=== PATIENT | male | born 1950 | race Caucasian/White ===

== ENCOUNTER → 2019-08-04 | Outpatient (CLI) | payer MEDICARE, BC ==
[~2019-08-04] MED LIST: CRESTOR20 MG PO
== END ==
LOC: COL.RAD 09:16
DX: Z13.6 Encounter for screening for cardiovascular disorders (principal); I70.0 Atherosclerosis of aorta; F17.201 Nicotine dependence, unspecified, in remission

== ENCOUNTER 2021-07-15 09:57 | Inpatient (IN) | payer MEDICARE, BC ==
[~2021-07-15] VITALS: Ht 188 cm; Wt 86.9 kg
[2021-07-15] MEDS ORDERED: LIPITOR 40MG TA40 MG PO (10:17)
[2021-07-15 10:52] LABS: BASO # 0.1 (0.0-0.2); BASO % 0.9 % (0.0-2.0); EOS # 0.4 (0.0-0.7); EOS % 4.7 % (0-4.0); GRAN # 4.8 (1.4-6.5); GRAN % 62.1 % (42.2-75.2); HEMATOCRIT 42.7 % (42.0-52.0); HEMOGLOBIN 14.6 g/dl (13.5-18.0); LYMPH # 1.9 (1.2-3.4); LYMPH % 24.7 % (20.0-51.0); MEAN CELL VOLUME 96 fl (80.0-100.0); MEAN CORPUSCULAR HEMOGLOBIN 33 pg (27.0-31.0); MEAN CORPUSCULAR HGB CONC 34 g/dl (33.0-37.0); MEAN PLATELET VOLUME 9.7 fl (7.4-10.4); MONO # 0.6 (0.1-0.6); PLATELET COUNT 231 K/mm3 (130-400); RED BLOOD COUNT 4.45 M/mm3 (4.20-5.60); REDCELL DISTRIBUTION WIDTH-CV 13.4 % (11.5-14.5)
[2021-07-15 11:05] LABS: BILIRUBIN,TOTAL 0.5 mg/dL (0.2-1.2); CALCIUM 9.7 mg/dL (8.4-10.2); TOTAL PROTEIN 7.3 gm/dL (6.2-8.1)
[2021-07-15] MEDS ORDERED: OMEGA-3 1000 MG1 CAP PO (14:57)
[2021-07-15] MEDS ORDERED: MEN'S ONE DAIL1 EACH PO (14:58)
[2021-07-15] MEDS ORDERED: VITAMIN C500 MG PO (14:58)
[2021-07-15 15:51] VITALS: BP 135/79; PULSE 82
[2021-07-15 18:32] LABS: COLLECTION METHOD IN
[2021-07-15 18:39] LABS: PH 6 (5-8); SQUAMOUS EPITHELIAL None Seen /hpf; URINE APPEARANCE Clear; URINE BACTERIA None Seen /hpf; URINE BILIRUBIN Negative (NEGATIVE); URINE BLOOD Negative (NEGATIVE); URINE COLOR Yellow; URINE GLUCOSE Negative (NEGATIVE); URINE KETONE Negative (NEGATIVE); URINE LEUKOCYTE ESTERASE Negative (NEGATIVE); URINE NITRATE Negative (NEGATIVE); URINE PROTEIN(semi-quant) Negative (NEGATIVE); URINE UROBILINOGEN Negative (NEGATIVE)
--- NOTE | 2021-07-15 18:51 | NUR ---
Patient extremely confused and not following directions. Bush was placed d/t patient retaining > 800mL of urine. Patient agitated. Kacey CALLAHAN notified and ordered seroquel.
[2021-07-15 20:00] VITALS: BP 144/83; PULSE 104; TEMP 98.3
--- NOTE | 2021-07-15 22:14 | NUR ---
PT ACTIVELY TRYING TO GET OUT OF BED. ATTEMPTED TO REORIENT PT BUT THAT WAS UNSUCCESSFUL. STATES HE NEEDS TO PEE, REMINDED PT THAT HE HAS A CATHETER BUT PT IS NOT RECEPTIVE. MITS PLACED ON PT TO PREVENT PULLING AT CATHETER. PRN MEDICATION GIVEN TO CALM PT DOWN. WILL CONTINUE TO MONITOR.
[2021-07-16 03:46] VITALS: BP 143/69; PULSE 91; TEMP 98.3
--- NOTE | 2021-07-16 05:33 | NUR ---
PT STILL VERY CONFUSED. ABLE TO ANSWER WHAT HIS NAME IS BUT REPEATS HIS NAME BACK WHEN ASKED ANY OTHER QUESTIONS. TYPICALLY PT TURNS OVER IN BED AND IGNORES WHEN ASKED ANY QUESTIONS. UNABLE TO PERFORM VERBAL COMMANDS. DID NOT APPEAR TO SLEEP AT ALL THROUGHOUT THE NIGHT. CONTINUING TO MONITOR.
--- NOTE | 2021-07-16 07:30 | NUR ---
Patient laying in bed upon entering room. This RN raised the HOB to 90 degrees to do the dyspagia screening. Patient was unable to follow directions and take a sip of water. Patient has purposeful movement, but is unable to follow directions when asked to squeeze fingers. Patient is not answering many questions, only stating his name "Geoff" and "yes". PN student will be assisting with the patient today.
[2021-07-16 07:42] VITALS: BP 143/70; PULSE 84; TEMP 98.4
[2021-07-16 10:00] LABS: BASO # 0.1 (0.0-0.2); BASO % 0.5 % (0.0-2.0); EOS # 0.1 (0.0-0.7); EOS % 1.1 % (0-4.0); GRAN # 7.1 (1.4-6.5); GRAN % 71.8 % (42.2-75.2); HEMATOCRIT 41.2 % (42.0-52.0); HEMOGLOBIN 14.2 g/dl (13.5-18.0); LYMPH # 1.6 (1.2-3.4); LYMPH % 15.9 % (20.0-51.0); MEAN CELL VOLUME 94 fl (80.0-100.0); MEAN CORPUSCULAR HEMOGLOBIN 32 pg (27.0-31.0); MEAN CORPUSCULAR HGB CONC 35 g/dl (33.0-37.0); MEAN PLATELET VOLUME 9.1 fl (7.4-10.4); MONO % 10.2 % (1.7-9.3); PLATELET COUNT 226 K/mm3 (130-400); RED BLOOD COUNT 4.38 M/mm3 (4.20-5.60); REDCELL DISTRIBUTION WIDTH-CV 13.2 % (11.5-14.5)
[2021-07-16 10:21] LABS: CALCIUM 9.9 mg/dL (8.4-10.2); CREATININE, serum 0.92 mg/dL (0.72-1.25); POTASSIUM 4.1 mmol/L (3.5-4.5)
--- NOTE | 2021-07-16 10:29 | NUR ---
Initial visit attempt; Patient's took Education Manager's card for further reference since patient is busy with visits from nurses and others. Education Manager is available should patient decide he would like a visit.
[2021-07-16 10:55] VITALS: BP 133/73; PULSE 93; TEMP 98.1
--- NOTE | 2021-07-16 14:32 | NUR ---
cooler worker met with patient to discuss discharge plan. Patient's present at bedside. Due to patient's mental status, completes assessment. Patient lives at home with his Saranya [phone] in [place]. Prior to admission, states that the patient has been fully independent with all of his activities of daily living and does not utilize any medical equipment within the home. PCP is Dr. Ellis and uses [facility] for pharmacy needs with no cost difficulties. reports that the patient does have a DPOA-HC and that she is his agent. Copies is in patient's floor chart. PT/OT/ST requests made to Dr. Patel. Discharge plan: Pending PT/OT rec's
--- NOTE | 2021-07-16 16:18 | NUR ---
Patient back to floor from .
[2021-07-16 16:24] VITALS: BP 116/69; PULSE 90
[2021-07-16 17:46] LABS: CSF APPEARANCE CLEAR; CSF COLOR COLORLESS
[2021-07-16 17:47] LABS: CSF POLYMORPHONUCLEAR 22 % (0-6); CSF RBC 73 /mm3 (0-0)
[2021-07-16 17:49] LABS: CSF MONONUCLEAR 77 % (70-100)
--- NOTE | 2021-07-16 18:18 | NUR ---
Patient remains confused and unable to follow commands. Frequently tries to get out of bed, and when told to lay back down he states, "god dammit, leave me alone". Patient has been vocal, but is still only able to answer what his name is.
--- NOTE | 2021-07-16 19:30 | NUR ---
Shift report received from Nayeli. At this time, patient has set off bed alarm and has pulled out his aguila; no evidence of urethral trauma or bleeding is noted. Patient is confused but is steady on his feet. He is provided with new gown and is sat up in recliner with his dinner. Chair alarm set , will continue close monitoring.
[2021-07-16 19:36] LABS: GLUCOSE,CSF 74 mg/dL (40-70); TOTAL PROTEIN,CSF 78 mg/dL (15-45)
[2021-07-16 20:03] VITALS: BP 125/58; PULSE 86; TEMP 98.3
[2021-07-17 00:28] VITALS: BP 147/79; PULSE 90; TEMP 98.2
[2021-07-17 04:45] VITALS: BP 141/79; PULSE 90; TEMP 98.2
[2021-07-17 07:13] LABS: BASO # 0.1 K/mm3 (0.0-0.2); BASO % 0.7 % (0.0-2.0); EOS # 0.2 K/mm3 (0.0-0.7); GRAN # 8.1 K/mm3 (1.4-6.5); GRAN % 72.6 % (42.2-75.2); HEMATOCRIT 40.4 % (42.0-52.0); HEMOGLOBIN 13.9 g/dl (13.5-18.0); LYMPH # 1.5 K/mm3 (1.2-3.4); LYMPH % 13.6 % (20.0-51.0); MEAN CELL VOLUME 96 fl (80.0-100.0); MEAN CORPUSCULAR HEMOGLOBIN 33 pg (27.0-31.0); MEAN CORPUSCULAR HGB CONC 34 g/dl (33.0-37.0); MONO # 1.2 K/mm3 (0.1-0.6); MONO % 10.7 % (1.7-9.3); PLATELET COUNT 228 K/mm3 (130-400); RED BLOOD COUNT 4.21 M/mm3 (4.20-5.60); REDCELL DISTRIBUTION WIDTH-CV 13.2 % (11.5-14.5)
[2021-07-17 07:15] VITALS: BP 150/75; PULSE 85; TEMP 99
[2021-07-17 07:26] LABS: CALCIUM 9.1 mg/dL (8.4-10.2); CREATININE, serum 1.1 mg/dL (0.72-1.25); POTASSIUM 3.9 mmol/L (3.5-4.5)
[2021-07-17 11:36] VITALS: BP 148/75; PULSE 89; TEMP 98
[2021-07-17 16:18] VITALS: BP 142/86; PULSE 101; TEMP 98.5
--- NOTE | 2021-07-17 17:56 | NUR ---
THE PATIENT HAS HAD AN UNEVENTFUL DAY. PT IS NOT TRACKING WELL, WHEN ASKED TO TRACK THIS RN'S FINGER HE IS UNABLE TO LOOK SIDE TO SIDE, AND APPEARS TO HAVE NYSTAGMUS. DURING THE DAY, THE PATIENT HAS BEEN VERY ACTIVE MOVING FROM BED TO CHAIR. WENT FOR A WALK TO THE MEDICAL UNIT DOORS WHERE THE PATIENT INDICATED HE WAS DONE WALKING. ACCORDING TO THE NEUROLOGY NOTE THAT WAS FROM , AN UPDATE WAS DICTATED JUL 17 AND IT STATES THE PATIENT SHOULD TRANSFER TO TERTIARY CARE DUE TO THE CRITICAL STATUS OF THE PATIENT. THIS HAS BEEN PASSED TO THE HOSPITALIST AND THEY ARE WORKING ON THE TRANSFER TO [facility]. REPORT GIVEN TO WILL DUKE
[2021-07-17 19:15] VITALS: BP 130/55; PULSE 87; TEMP 98.2
--- NOTE | 2021-07-17 20:00 | NUR ---
Assessment complete. Patient's mentation status is unchanged from last night's assessment. He has a blank stare and is unable to follow specific commands. He does not appear to be in any acute distress but does move around in the bed a lot. Bush is in place and draining slightly pink urine, as he tends to tug at the tubing. A red, unraised rash appears on patient's entire back and back of shoulders; patient has not shown that the rash is itchy or otherwise bothersome. MANAGING CONSULTANT CLINICAL PROFESSOR Mag Go notified. Patient's , Wanda, is contacted and notified of patient's transfer status to [facility]; verbal consent for transfer is obtained. Bed alarm set.
--- NOTE | 2021-07-17 22:45 | NUR ---
EMS here to transfer patient at this time. Haldol was given one hour ago to improve pt's comfort during trip. Report called to Zoie at . Call back number given to her in case of additional questions.
[2021-07-18 13:31] LABS: HSV 2 DNA PCR QUAL Not Detected (())
== END 2021-07-17 22:45 | disposition short-term general hospital (02) | DRG 98 ==
LOC: COL.ER 09:57 → MEDICAL 13:55
PROVIDERS: Personal Emergency Response Attendant; Physician Assistant; Psychiatry & Neurology Neurology; ADMIT Student in an Organized Health Care Education/Training Program
PROC: 009U3ZZ Drainage of Spinal Canal, Percutaneous Approach (ICD-10-PCS; principal; 2021-07-16)
DX: G04.90 Encephalitis and encephalomyelitis, unspecified (principal); R47.01 Aphasia; E87.5 Hyperkalemia; E78.5 Hyperlipidemia, unspecified; R33.9 Retention of urine, unspecified; R21 Rash and other nonspecific skin eruption; Z20.822 Contact with and (suspected) exposure to COVID-19; Z87.891 Personal history of nicotine dependence
CPT/HCPCS: 99222-AI; 99232-AI; 99233-AI; A4314; A9585; J0133; J0330; J1630; J1650; J1953; J2060; J2704; Q9967

== ENCOUNTER → 2022-01-06 | Outpatient (CLI) | payer MEDICARE, BC ==
[~2022-01-06] MED LIST changes: +LIPITOR 40MG TA40 MG PO; +MEN'S ONE DAIL1 EACH PO; +OMEGA-3 1000 MG1 CAP PO; +VITAMIN C500 MG PO
== END ==
LOC: COL.CARD 09:12
DX: G40.909 Epilepsy, unspecified, not intractable, without status epilepticus (principal)